=== PATIENT | male | born 1980 | race Caucasian/White ===

== ENCOUNTER 2022-01-15 04:46 | Inpatient (IN) | payer SELFPAY ==
[~2022-01-15] VITALS: Ht 182.9 cm; Wt 60.7 kg
[2022-01-15 05:27] LABS: COVID AG,FIA SOURCE NASAL SWAB
[2022-01-15 05:46] LABS: INFLUENZA TYPE A NEGATIVE FOR TYPE A (NEGATIVE); INFLUENZA TYPE B NEGATIVE FOR TYPE B (NEGATIVE)
[2022-01-15 06:32] LABS: APPEARANCE,URINE CLEAR (CLEAR); BILIRUBIN,URINE NEGATIVE (NEGATIVE); GLUCOSE, URINE (UA) NEGATIVE (NEGATIVE); KETONES,URINE NEGATIVE (NEGATIVE); LEUKOCYTE ESTERASE ,URINE NEGATIVE (NEGATIVE); NITRATE,URINE NEGATIVE (NEGATIVE); OCCULT BLOOD,URINE NEGATIVE (NEGATIVE); PH,URINE 6.5 (5.0-8.0); PROTEIN,URINE NEGATIVE (NEGATIVE); SPECIFIC GRAVITIY, URINE 1.008 (1.003-1.030)
[2022-01-15 06:39] LABS: AMPHET/METH SCREEN,URINE POSITIVE (NEGATIVE); BARBITURATE SCREEN, URINE NEGATIVE (NEGATIVE); BENZODIAZEPINES SCREEN,URINE NEGATIVE (NEGATIVE); CANNABINOID SCREEN,URINE NEGATIVE (NEGATIVE); COCAINE SCREEN,URINE NEGATIVE (NEGATIVE); METHADONE SCREEN, URINE NEGATIVE (NEGATIVE); OPIATE SCREEN,URINE NEGATIVE (NEGATIVE)
[2022-01-15 06:41] LABS: PHENCYCLIDINE SCREEN,URINE NEGATIVE (NEGATIVE)
[2022-01-15 06:56] LABS: BASOPHILS % (AUTO) 1.1 % (0.0-2.0); HEMOGLOBIN 10.4 g/dL (13.5-17.5); LYMPHOCYTES # (AUTO) 0.8 K/uL (1.0-4.8); LYMPHOCYTES % (AUTO) 21.3 % (22.0-44.0); MEAN CORPUSCULAR HEMOGLOBIN 27.3 pg (26.0-34.0); MEAN CORPUSCULAR HGB CONC 34.6 G/dL (31.0-37.0); MEAN CORPUSCULAR VOLUME 79 fL (80-100); MONOCYTES # (AUTO) 0.5 K/uL (0.1-1.0); MONOCYTES % (AUTO) 12.1 % (2.0-9.0); NEUTROPHILS # (AUTO) 2.3 K/uL (1.8-7.7); NEUTROPHILS % (AUTO) 60.5 % (40.0-70.0); PLATELET COUNT (AUTO) 173 K/uL (150-450); RED CELL DISTRIBUTION WIDTH 18.5 % (11.5-14.5)
[2022-01-15 07:02] LABS: ANION GAP 5 mmol/L (8-16); CALCIUM, TOTAL 8.7 mg/dL (8.8-10.5); CARBON DIOXIDE 29 mmol/L (22-29); CHLORIDE 105 mmol/L (98-107); CREATININE 0.71 mg/dL (0.60-1.30); GLUCOSE,RANDOM 101 mg/dL (70-110); SODIUM SERUM 139 mmol/L (136-145); UREA NITROGEN, BLOOD 9 mg/dL (7-18)
[2022-01-15 07:03] LABS: GLOMERULAR FILTR. RATE CALC > 60 mL/min (>60)
[2022-01-15 07:19] LABS: AMMONIA 28 umol/L (11-32)
[2022-01-15 07:26] LABS: ALANINE AMINOTRANSFERASE 49 U/L (12-78); ALBUMIN 3.5 g/dL (3.4-5.0); ALKALINE PHOSPHATASE 137 U/L (46-116); ASPARTATE AMINOTRANSFERASE 48 U/L (15-37); BILIRUBIN,TOTAL 0.5 mg/dL (0.1-1.0); CREATINE KINASE, TOTAL ONLY 156 U/L (39-308); PHOSPHORUS 4.2 mg/dL (2.5-4.9); TOTAL PROTEIN, SERUM 7.2 g/dL (6.4-8.2)
[2022-01-15] MEDS: POTASSIUM CHLORIDE 20 MEQ ER TABLET PO ONE ×3 (07:46→08:02)
[2022-01-15] MEDS: MAGNESIUM OXIDE 400 MG TABLET PO ONE ×3 (07:46→08:02)
[2022-01-15 07:56] LABS: B-TYPE NATRIURETIC PEPTIDE 83 pg/mL (0-100)
[2022-01-15] MEDS ORDERED: DOXYCYCLINE HYCLATE 100 MG TABLET PO ONE (08:00)
[2022-01-15] MEDS ORDERED: ZOLPIDEM TARTRATE 10 MG TABLET PO PRN (12:45)
[2022-01-15 14:07] VITALS: BP 142/77
[2022-01-15 16:00] VITALS: BP 153/75
[2022-01-16 08:19] LABS: MAGNESIUM 1.7 mg/dL (1.80-2.40); PHOSPHORUS 3.2 mg/dL (2.5-4.9); POTASSIUM 3.6 mmol/L (3.5-5.1)
[2022-01-16] MEDS: THIAMINE 100 MG TABLET PO SCH (09:12)
[2022-01-16] MEDS: MULTIVITAMINS WITH MINERALS, THERAPEUTIC TABLET PO SCH (09:12)
[2022-01-16 10:56] VITALS: BP 150/98
[2022-01-16] MEDS: FLUoxetine HCL 20 MG CAPSULE PO SCH (13:02)
[2022-01-17 08:00] VITALS: BP 161/88
[2022-01-17] MEDS: FLUoxetine HCL 20 MG CAPSULE PO SCH (09:44)
[2022-01-17] MEDS: MULTIVITAMINS WITH MINERALS, THERAPEUTIC TABLET PO SCH (09:44)
[2022-01-17] MEDS: THIAMINE 100 MG TABLET PO SCH (09:44)
[2022-01-17 16:27] VITALS: BP 150/81
[2022-01-17] MEDS: LORazepam 2 MG TABLET PO PRN (21:25)
[2022-01-17] MEDS ORDERED: MAGNESIUM HYDROXIDE SUSPENSION 30 ML UDCUP PO PRN (21:45)
[2022-01-17] MEDS ORDERED: ACETAMINOPHEN 325 MG TABLET PO PRN (21:45)
[2022-01-17] MEDS ORDERED: NICOTINE 14 MG/24 HOUR PATCH TD PRN (21:45)
[2022-01-17] MEDS ORDERED: IBUPROFEN 400 MG TABLET PO PRN (21:45)
[2022-01-17] MEDS ORDERED: MAG HYDROX/AL HYDROX/SIMETH ES 30 ML SUSPENSION UDCUP PO PRN (21:45)
[2022-01-17] MEDS ORDERED: PETROLATUM,WHITE 28 GM JELLY TP PRN (21:45)
[2022-01-17] MEDS ORDERED: ONDANSETRON HCL 4 MG TABLET PO PRN (21:45)
[2022-01-17] MEDS ORDERED: DOCUSATE SODIUM 100 MG CAPSULE PO PRN (21:45)
[2022-01-17] MEDS ORDERED: CloNIDine HCL 0.1 MG TABLET PO PRN (21:45)
[2022-01-17] MEDS ORDERED: GuaiFENesin/D-METHORPHAN [SUGAR-FREE] 200-20MG/10 ML SYRUP UDCUP PO PRN (21:45)
[2022-01-17] MEDS ORDERED: ALBUTEROL SULFATE HFA 90 MCG/PUFF 8 GM INHALER IH PRN (21:45)
[2022-01-18 06:57] LABS: BASOPHILS % (AUTO) 0.8 % (0.0-2.0); EOSINOPHILS % (AUTO) 2.1 % (1.0-6.0); HEMATOCRIT 37.7 % (41-53); HEMOGLOBIN 12.8 g/dL (13.5-17.5); LYMPHOCYTES # (AUTO) 1.3 K/uL (1.0-4.8); LYMPHOCYTES % (AUTO) 23.9 % (22.0-44.0); MEAN CORPUSCULAR HEMOGLOBIN 26.4 pg (26.0-34.0); MEAN CORPUSCULAR HGB CONC 33.9 G/dL (31.0-37.0); MEAN CORPUSCULAR VOLUME 78 fL (80-100); MONOCYTES # (AUTO) 0.4 K/uL (0.1-1.0); NEUTROPHILS # (AUTO) 3.7 K/uL (1.8-7.7); NEUTROPHILS % (AUTO) 65.2 % (40.0-70.0); PLATELET COUNT (AUTO) 219 K/uL (150-450); RED BLOOD CELL COUNT(AUTO) 4.84 MIL/uL (4.50-5.90); RED CELL DISTRIBUTION WIDTH 17.9 % (11.5-14.5)
[2022-01-18 07:41] LABS: ALANINE AMINOTRANSFERASE 43 U/L (12-78); ALBUMIN 3.7 g/dL (3.4-5.0); ALKALINE PHOSPHATASE 108 U/L (46-116); ANION GAP 7 mmol/L (8-16); ASPARTATE AMINOTRANSFERASE 55 U/L (15-37); BILIRUBIN,TOTAL 0.5 mg/dL (0.1-1.0); CALCIUM, TOTAL 9.1 mg/dL (8.8-10.5); CARBON DIOXIDE 25 mmol/L (22-29); CHLORIDE 105 mmol/L (98-107); CHOLESTEROL 132 mg/dL (131-200); CREATININE 0.62 mg/dL (0.60-1.30); GLUCOSE,RANDOM 106 mg/dL (70-110); HDL CHOLESTEROL 44 mg/dL (40-60); LDL CHOL (CALC.) 77 mg/dL (0-130); POTASSIUM 3.6 mmol/L (3.5-5.1); SODIUM SERUM 137 mmol/L (136-145); THYROID STIMULATING HORMONE 0.72 uIU/mL (0.36-3.74); TOTAL PROTEIN, SERUM 7.8 g/dL (6.4-8.2); TRIGLYCERIDES 55 mg/dL (15-150); UREA NITROGEN, BLOOD 9 mg/dL (7-18)
[2022-01-18 07:45] LABS: GLOMERULAR FILTR. RATE CALC > 60 mL/min (>60)
[2022-01-18] MEDS: THIAMINE 100 MG TABLET PO SCH (08:51)
[2022-01-18] MEDS: FLUoxetine HCL 20 MG CAPSULE PO SCH (08:51)
[2022-01-18] MEDS: LORazepam 2 MG TABLET PO PRN ×3 (08:51→20:36)
[2022-01-18] MEDS: MULTIVITAMINS WITH MINERALS, THERAPEUTIC TABLET PO SCH (08:51)
[2022-01-18 09:02] LABS: HEMOGLOBIN A1C 5.6 % (3.8-5.6)
[2022-01-18 16:02] VITALS: BP 154/96
[2022-01-18] MEDS: NICOTINE POLACRILEX 2 MG LOZENGE PO PRN ×2 (17:08→23:08)
[2022-01-18 20:18] VITALS: BP 159/90
[2022-01-19] MEDS: LORazepam 2 MG TABLET PO PRN ×3 (01:00→14:11)
[2022-01-19] MEDS: HALOPERIDOL 5 MG TABLET PO PRN ×3 (01:19→14:11)
[2022-01-19 08:10] VITALS: BP 142/103
[2022-01-19] MEDS: FLUoxetine HCL 20 MG CAPSULE PO SCH (08:32)
[2022-01-19] MEDS: THIAMINE 100 MG TABLET PO SCH (08:32)
[2022-01-19] MEDS: MULTIVITAMINS WITH MINERALS, THERAPEUTIC TABLET PO SCH (08:33)
[2022-01-19] MEDS: NICOTINE POLACRILEX 2 MG LOZENGE PO PRN ×2 (08:34→17:39)
[2022-01-19 16:03] VITALS: BP 151/90
[2022-01-20] MEDS: LOPERAMIDE HCL 2 MG CAPSULE PO PRN ×2 (01:53→09:08)
[2022-01-20] MEDS: LORazepam 2 MG TABLET PO PRN ×4 (01:53→19:00)
[2022-01-20] MEDS: NICOTINE POLACRILEX 2 MG LOZENGE PO PRN ×2 (01:54→13:59)
[2022-01-20 08:25] VITALS: BP 145/91
[2022-01-20] MEDS: HALOPERIDOL 5 MG TABLET PO PRN (08:25)
[2022-01-20] MEDS: FLUoxetine HCL 20 MG CAPSULE PO SCH (08:25)
[2022-01-20] MEDS: THIAMINE 100 MG TABLET PO SCH (08:25)
[2022-01-20] MEDS: MULTIVITAMINS WITH MINERALS, THERAPEUTIC TABLET PO SCH (08:25)
[2022-01-20 16:22] VITALS: BP 109/69
[2022-01-21] MEDS: HALOPERIDOL 5 MG TABLET PO PRN ×2 (03:47→10:31)
[2022-01-21] MEDS: LORazepam 2 MG TABLET PO PRN ×2 (03:47→10:30)
[2022-01-21] MEDS: NICOTINE POLACRILEX 2 MG LOZENGE PO PRN ×2 (03:54→10:46)
[2022-01-21 07:13] LABS: COVID AG,FIA SOURCE NASAL SWAB
[2022-01-21 09:10] VITALS: BP 141/95
[2022-01-21] MEDS: THIAMINE 100 MG TABLET PO SCH (10:30)
[2022-01-21] MEDS: FLUoxetine HCL 20 MG CAPSULE PO SCH (10:30)
[2022-01-21] MEDS: MULTIVITAMINS WITH MINERALS, THERAPEUTIC TABLET PO SCH (10:30)
[2022-01-21] MEDS ORDERED: MULT-1239 PO (14:39)
[2022-01-21] MEDS ORDERED: THIA100T80 PO (14:39)
[2022-01-21] MEDS ORDERED: FLUO20CA36 PO ×2 (14:40→14:42)
== END 2022-01-21 15:15 | disposition home or self-care (01) | DRG 885 ==
LOC: EDSEX 04:54 → EMS 04:54 → 3EI 13:09 → 3EC 01-18 14:38
PROVIDERS: ADMIT Psychiatry & Neurology Psychiatry; ATTEND Psychiatry & Neurology Psychiatry
DX: F33.2 Major depressive disorder, recurrent severe without psychotic features (principal); R45.851 Suicidal ideations; E44.0 Moderate protein-calorie malnutrition; L03.114 Cellulitis of left upper limb; Z68.1 Body mass index [BMI] 19.9 or less, adult; J45.909 Unspecified asthma, uncomplicated; K74.60 Unspecified cirrhosis of liver; Z20.822 Contact with and (suspected) exposure to COVID-19; F15.10 Other stimulant abuse, uncomplicated; E87.6 Hypokalemia; D64.9 Anemia, unspecified; F41.9 Anxiety disorder, unspecified; D72.819 Decreased white blood cell count, unspecified; Z79.899 Other long term (current) drug therapy; Z87.891 Personal history of nicotine dependence; I25.2 Old myocardial infarction; Z95.0 Presence of cardiac pacemaker; Z95.1 Presence of aortocoronary bypass graft; Z59.00 Homelessness unspecified
CPT/HCPCS: 70450; 71045; 80053; 80061; 81003; 82140; 82550; 83036; 83605; 83735; 83880; 84100; 84132; 84443; 84484; 85025; 87040; 87804; 93005; 99285; G0480; Q0162; Q9967; 36415-L1; 36415-TC